=== PATIENT | female | born 1985 | race Caucasian/White ===

== ENCOUNTER 2018-01-18 12:11 | Emergency (ER) | payer MEDICAID, SELFPAY ==
--- NOTE | 2018-01-18 13:00 | RAD ---
TWO VIEWS CHEST: HISTORY: Cough for three weeks. COMPARISON: 06/27/2007 FINDINGS: Two views of the chest show normal sized cardiomediastinal silhouette. There is no evidence of consol idation, mass, or pleural effusion. The bones are unremarkable. IMPRESSION: No evidence of acute cardiopulmonary disease. POS: [facility]
== END 2018-01-18 12:50 | disposition home or self-care (01) ==
LOC: SCSER 12:11
DX: J06.9 Acute upper respiratory infection, unspecified (principal); F41.9 Anxiety disorder, unspecified; K21.9 Gastro-esophageal reflux disease without esophagitis; Z79.899 Other long term (current) drug therapy
CPT/HCPCS: 71046; 94640; J7620

== ENCOUNTER 2018-05-13 18:03 | Emergency (ER) | payer MEDICAID, SELFPAY ==
[2018-05-13 19:25] LABS: Bilirubin Negative (Negative); Blood, Urine Negative (Negative); Clarity CLEAR (Clear); Glucose, Urine (Dipstick) Negative (Negative); Leukocyte Negative (Negative); Nitrite Negative (Negative); Protein, Urine (Dipstick) Negative (Neg-Trace); Specific Gravity, Urine 1.027 (1.002-1.036); Urobilinogen 0.2 mg/dL (0.2-1.0)
[2018-05-13 19:28] LABS: Pregnancy Test - Urine (BHCG) Negative (Negative); Pregu Control Background? CLEAR/WHITE (CLR/WHITE); Pregu Control Bar Appear? YES (CONTROL BAR); Specific Gravity 1.027 (1.002-1.036)
[2018-05-13] MEDS ORDERED: Lidocaine 1% PF 5 ML VIAL ONE (19:31)
[2018-05-13 19:35] LABS: #Eosinphils 0.1 thou/uL (0.0-0.7); #Lymphocytes 2.3 thou/uL (1.20-3.40); #Monocytes 0.5 thou/uL (0.11-0.59); #Neutrophils 6.8 thou/uL (1.40-6.50); %Basophils 0.2 % (0.0-1.0); %Eosinophils 1.3 % (0.0-10.0); %Lymphocytes 23.4 % (21.0-51.0); %Monocytes 5.1 % (0.0-10.0); Hemoglobin 11.5 g/dL (12.0-16.0); Mean Corpuscular HGB CONC 34.4 g/dL (32.0-36.0); Mean Corpuscular Hemoglobin 29.2 pg (27.0-31.0); Mean Platelet Volume 6.9 fL (7.4-10.4); Platelet Count 250 thou/uL (130-400); RBC Distribution Width 12.7 % (11.5-14.5); Red Blood Cell (RBC) Count 3.92 mill/uL (4.20-5.40); White Blood Cell (WBC) Count 9.7 thou/uL (4.8-10.8)
[2018-05-13] MEDS ORDERED: Metoclopramide HCl 10 MG/2 ML VIAL ONE (19:35)
[2018-05-13] MEDS ORDERED: diphenhydrAMINE 50 MG/ML VIAL ONE (19:35)
[2018-05-13] MEDS ORDERED: Ketorolac Tromethamine 30 MG/ML VIAL ONE (19:35)
[2018-05-13 19:39] LABS: Prothrombin Time 12.9 SEC (12.0-14.7)
[2018-05-13 19:40] LABS: PTT 30.3 SEC (22.9-36.1)
[2018-05-13 19:45] LABS: Amphetamine Not Detected (NotDetected); Barbiturates Screen Not Detected (NotDetected); Benzodiazepine Screen Not Detected (NotDetected); Cocaine Metabolite Screen Not Detected (NotDetected); Medtox Control Line Valid? VALID (VALID); Medtox Reader # READER 1; Methadone Not Detected (NotDetected); Methamphetamine Not Detected (NotDetected); Opiate Screen Not Detected (NotDetected); Oxycodone Screen Not Detected (NotDetected); Phencyclidine (PCP) Not Detected (NotDetected); THC/Cannabinoid Screen Not Detected (NotDetected); Tricyclic Screen Not Detected (NotDetected)
--- NOTE | 2018-05-13 19:45 | RAD ---
PORTABLE CHEST: 05/13/18 HISTORY: Chest pain, tachycardia. COMPARISON: 12/18/16 study. The heart size and mediastinum are within normal limits. The lungs are clear of infiltrates. No signi ficant bony findings. IMPRESSION: No active intrathoracic disease. POS: [facility]
[2018-05-13 19:57] LABS: ALT (SGPT) 11 U/L (8-55); AST (SGOT) 9 U/L (5-34); Albumin 3.8 g/dL (3.5-5.0); Alkaline Phosphatase 82 U/L (40-150); Anion Gap 12 mmol/L (10-20); BUN (Urea Nitrogen) 14 mg/dL (7.0-18.7); Bilirubin, Total 0.6 mg/dL (0.2-1.2); CK (CPK) 52 U/L (29-168); Calc. Creatinine Clearance 0 mL/min (70-130); Carbon Dioxide 19 mmol/L (22-29); Chloride 109 mmol/L (98-107); Estimated GFR-MDRD Greater than 90; Globulin 2.7 g/dL (2.4-3.5); Glucose 128 mg/dL (70-105); Lipase 48 U/L (8-78); Magnesium 1.8 mg/dL (1.6-2.6); Potassium 3.9 mmol/L (3.5-5.1); Protein, Total 6.5 g/dL (6.0-8.3); Sodium 136 mmol/L (136-145)
[2018-05-13 20:00] LABS: CKMB 0.6 ng/mL (0-6.6); Troponin I Less than 0.010 ng/mL (< 0.028)
--- NOTE | 2018-05-13 20:53 | CT ---
CT OF BRAIN PERFORMED WITHOUT CONTRAST ENHANCEMENT: 05/13/18 HISTORY: Tachycardia and headache. Ventricular and cisternal system is within normal limits. There is no signs of intracerebral hemorrh age or extra-axial fluid collections. Mastoid air cells and visualized sinuses are clear. IMPRESSION: No acute intracranial abnormalities. POS: [facility]
--- NOTE | 2018-05-13 21:27 | CT ---
CT ANGIO OF CHEST AND ABDOMEN PERFORMED WITH INTRAVENOUS CONTRAST ENHANCEMENT WITH 3D RECONSTRUCTIONS : 05/13/18 HISTORY: Tachycardia. Chest pain. This was done per the aortic dissection protocol. The lungs are clear of any infiltrative process. No pulmonary nodules or pleural effusions. No signif icant mediastinal or hilar adenopathy. The thoracic aorta is normal in caliber. No signs of dissection. CT ANGIO OF ABDOMEN: The liver, spleen, pancreas and gallbladder regions are unremarkable on this angiographic phase exam. Right and left adrenal glands and right and left kidneys are normal in appearance. There is no signif icant periaortic or mesenteric adenopathy. Abdominal aorta is normal in caliber. There is no signs for dissection. IMPRESSION: No evidence of aortic aneurysm or dissection. POS: [facility]
== END 2018-05-13 22:23 | disposition home or self-care (01) ==
LOC: ERS 18:03
DX: R51 Headache (principal); R55 Syncope and collapse; F41.9 Anxiety disorder, unspecified; Z79.899 Other long term (current) drug therapy
CPT/HCPCS: 36415; 70450; 71045; 71275; 80053; 80306; 81003; 81025; 82550; 82553; 83690; 83735; 84484; 85025; 85610; 85730; 93005; 96361; 96374; 96375; J1200; J1885; J2001; J2765

== ENCOUNTER 2018-07-04 14:03 | Emergency (ER) | payer SELFPAY | END 2018-07-04 15:46 | disposition home or self-care (01) | LOC: SCSER 14:03 | DX: J02.9 Acute pharyngitis, unspecified (principal); J06.9 Acute upper respiratory infection, unspecified; K21.9 Gastro-esophageal reflux disease without esophagitis; F41.9 Anxiety disorder, unspecified | CPT/HCPCS: 87081; 87430; 99283 ==

== ENCOUNTER 2018-10-13 09:32 | Emergency (ER) | payer SELFPAY ==
[2018-10-13 10:17] LABS: Bilirubin Negative (Negative); Blood, Urine Large (Negative); Clarity TURBID (Clear); Glucose, Urine (Dipstick) Negative (Negative); Leukocyte Large (Negative); Nitrite Positive (Negative); Protein, Urine (Dipstick) 100 mg/dL (Neg-Trace); Specific Gravity, Urine 1.017 (1.002-1.036); Urobilinogen 0.2 mg/dL (0.2-1.0); pH, Urine 6.5 (5.0-9.0)
[2018-10-13 10:19] LABS: Bacteria/HPF 4+ HPF (None Seen); Hyaline Casts/LPF 0-3 HYALINE CAST LPF (0-3 Hyaline); Pathc Cast-AUWi Flag 0.31 (0-2.49); Squamous Epithelial 0-3 HPF (0-3)
[2018-10-13 10:21] LABS: Yeast-AUWi Flag 117.6 (0-25.0)
[2018-10-13 10:22] LABS: Pregnancy Test - Urine (BHCG) Negative (Negative); Pregu Control Background? CLEAR/WHITE (CLR/WHITE); Pregu Control Bar Appear? YES (CONTROL BAR); Specific Gravity 1.017 (1.002-1.036)
[2018-10-13 10:32] LABS: Yeast-All Forms None Seen HPF (None Seen)
== END 2018-10-13 10:39 | disposition home or self-care (01) ==
LOC: ERS 09:32
DX: R30.0 Dysuria (principal); K21.9 Gastro-esophageal reflux disease without esophagitis; F41.9 Anxiety disorder, unspecified; Z79.899 Other long term (current) drug therapy
CPT/HCPCS: 81003; 81015; 81025; 99281

== ENCOUNTER 2022-08-01 16:47 | Emergency (ER) | payer OTHER, SELFPAY ==
[~2022-08-01 16:47] MED LIST: Iopamidol-370 76% 500 ML 1 ML ONE
[2022-08-01 17:11] LABS: #Basophils 0.1 thou/uL (0.0-0.2); #Eosinphils 0.1 thou/uL (0.0-0.7); #Lymphocytes 2.2 thou/uL (1.20-3.40); #Monocytes 0.4 thou/uL (0.11-0.59); #Neutrophils 5.3 thou/uL (1.40-6.50); %Basophils 1.3 % (0.0-1.0); %Eosinophils 1.2 % (0.0-10.0); %Lymphocytes 27.3 % (21.0-51.0); %Neutrophils 65.2 % (42.0-75.0); Hemoglobin 12.3 g/dL (12.0-16.0); Mean Corpuscular HGB CONC 34.3 g/dL (32.0-36.0); Mean Corpuscular Hemoglobin 29.7 pg (27.0-31.0); Mean Corpuscular Volume 86.5 fL (78.0-98.0); Mean Platelet Volume 7.5 fL (7.4-10.4); Platelet Count 260 thou/uL (130-400); RBC Distribution Width 12.6 % (11.5-14.5); Red Blood Cell (RBC) Count 4.13 mill/uL (4.20-5.40); White Blood Cell (WBC) Count 8.1 thou/uL (4.8-10.8)
[2022-08-01 17:28] LABS: ALT (SGPT) 25 U/L (8-55); AST (SGOT) 17 U/L (5-34); Albumin 4.2 g/dL (3.5-5.0); Alkaline Phosphatase 91 U/L (40-110); Anion Gap 14 mmol/L (10-20); BUN (Urea Nitrogen) 11 mg/dL (7.0-18.7); Bilirubin, Total 1.1 mg/dL (0.2-1.2); Calc. Creatinine Clearance 0 mL/min (70-130); Calcium 9.6 mg/dL (7.8-10.44); Carbon Dioxide 21 mmol/L (22-29); Chloride 104 mmol/L (98-107); Estimated GFR 84; Globulin 3.1 g/dL (2.4-3.5); Glucose 323 mg/dL (70-105); Potassium 3.8 mmol/L (3.5-5.1); Protein, Total 7.3 g/dL (6.0-8.3); Sodium 135 mmol/L (136-145)
[2022-08-01] MEDS ORDERED: Ketorolac Tromethamine 30 MG/ML VIAL ONE (18:10)
[2022-08-01] MEDS ORDERED: Ondansetron PF 4 MG/2 ML Vial ONE (18:41)
== END 2022-08-01 19:37 | disposition home or self-care (01) ==
LOC: ERS 16:47
DX: R07.89 Other chest pain (principal); E11.9 Type 2 diabetes mellitus without complications
CPT/HCPCS: 36415; 71045; 71275; 80053; 82550; 84443; 84484; 85025; 93005; 96374; 96375; J1885; J2405; Q9967

== ENCOUNTER 2023-01-21 12:05 | Inpatient (IN) | payer BC ==
[2023-01-21] MEDS ORDERED: Ketorolac Tromethamine 30 MG/ML VIAL ONE (13:15)
[2023-01-21] MEDS ORDERED: Calcium Carbonate 500 MG ChewTAB PO PRN (14:34)
[2023-01-21] MEDS ORDERED: Ondansetron PF 4 MG/2 ML Vial IVP PRN (14:34)
[2023-01-21] MEDS ORDERED: Senokot S 8.6-50 MG TAB PO PRN (14:34)
[2023-01-21] MEDS ORDERED: HumaLOG 300 UNITS/3 ML VIAL SC PRN ×2 (14:36)
[2023-01-21] MEDS ORDERED: Dextrose 50% Abboject 50 ML SYRINGE SLOW IVP PRN (14:36)
[2023-01-21] MEDS ORDERED: Dextrose 5% in Water 1,000 ML IV PRN (14:36)
[2023-01-21] MEDS ORDERED: Morphine 2 MG/ML VIAL SLOW IVP PRN (15:00)
[2023-01-21] MEDS ORDERED: Piperacillin/Tazobactam 3.375 GM in Sodium Chloride 0.9% 100 ML IVPB SCH ×2 (16:45→18:00)
[2023-01-21] MEDS: Sodium Chloride 0.9% 1,000 ML IV SCH (18:16)
[2023-01-21 18:19] VITALS: BMI 36.3
[2023-01-21] MEDS: Acetaminophen 325 MG TAB PO PRN (19:56)
[2023-01-21] MEDS: Famotidine/PF 20 mg/2ml Vial SLOW IVP SCH (20:05)
[2023-01-21] MEDS: metroNIDAZOLE 500 MG in Premix Bag 1 BAG IVPB SCH (20:12)
[2023-01-21] MEDS: hydrOXYzine 10 MG TAB PO PRN (20:49)
[2023-01-22] MEDS: metroNIDAZOLE 500 MG in Premix Bag 1 BAG IVPB SCH ×4 (04:26→21:06)
[2023-01-22] MEDS: Sodium Chloride 0.9% 1,000 ML IV SCH (05:55)
[2023-01-22 06:53] LABS: #Eosinphils 0.7 thou/uL (0.0-0.7); #Lymphocytes 1.9 thou/uL (1.20-3.40); #Monocytes 0.4 thou/uL (0.11-0.59); #Neutrophils 2.9 thou/uL (1.40-6.50); %Basophils 0.2 % (0.0-1.0); %Lymphocytes 31.8 % (21.0-51.0); %Monocytes 6.8 % (0.0-10.0); %Neutrophils 49.2 % (42.0-75.0); Hemoglobin 10.9 g/dL (12.0-16.0); Mean Corpuscular HGB CONC 35.9 g/dL (32.0-36.0); Mean Corpuscular Hemoglobin 31.7 pg (27.0-31.0); Mean Corpuscular Volume 88.2 fl (78.0-98.0); Mean Platelet Volume 7.1 fL (7.4-10.4); Platelet Count 191 10x3/uL (130-400); RBC Distribution Width 12.6 % (11.5-14.5); Red Blood Cell (RBC) Count 3.43 mill/uL (4.20-5.40); White Blood Cell (WBC) Count 5.9 10x3/uL (4.8-10.8)
[2023-01-22 07:17] LABS: ALT (SGPT) 13 U/L (8-55); AST (SGOT) 10 U/L (5-34); Albumin 3.4 g/dL (3.5-5.0); Alkaline Phosphatase 62 U/L (40-110); Anion Gap 9 mmol/L (10-20); BUN (Urea Nitrogen) 7 mg/dL (7.0-18.7); Bilirubin, Total 1.4 mg/dL (0.2-1.2); Calc. Creatinine Clearance 165 mL/min (70-130); Carbon Dioxide 22 mmol/L (22-29); Cardiac Risk 6.5 (Less than 4.5); Chloride 109 mmol/L (98-107); Cholesterol 176 mg/dl (< 200 Desired); Estimated GFR 115; Globulin 2.3 g/dL (2.4-3.5); Glucose 102 mg/dL (70-105); HDL Cholesterol 27 mg/dL (>60 Neg Risk); LDL Cholesterol, Calculated 118 mg/dL; Lipase 25 U/L (8-78); Potassium 3.9 mmol/L (3.5-5.1); Protein, Total 5.7 g/dL (6.0-8.3); Sodium 136 mmol/L (136-145); Triglycerides 154 mg/dL (Less than 150)
[2023-01-22] MEDS: Famotidine/PF 20 mg/2ml Vial SLOW IVP SCH ×2 (08:32→21:06)
[2023-01-22 10:58] LABS: Pregnancy Test - Urine (BHCG) Negative (Negative); Pregu Control Background? CLEAR/WHITE (CLR/WHITE); Pregu Control Bar Appear? YES (CONTROL BAR); Specific Gravity 1.008 (1.002-1.036)
[2023-01-22] MEDS ORDERED: Bupivacaine/Epinephrine 0.25% 30 ML VIAL ONE (11:50)
[2023-01-22] MEDS ORDERED: Famotidine/PF 20 mg/2ml Vial ONE (12:11)
[2023-01-22] MEDS ORDERED: SUGAMMADEX SODIUM 200 MG/2 ML VIAL ONE (12:11)
[2023-01-22] MEDS ORDERED: fentaNYL 50 mcg/mL 1 mL Vial ONE ×5 (12:11→14:08)
[2023-01-22] MEDS ORDERED: Ketorolac Tromethamine 30 MG/ML VIAL ONE (12:23)
[2023-01-22] MEDS ORDERED: Phenylephrine 10 MG/ML VIAL ONE (12:23)
[2023-01-22] MEDS ORDERED: PROPOFOL 200 MG/20 ML VIAL ONE (12:23)
[2023-01-22] MEDS ORDERED: Metoclopramide HCl 10 MG/2 ML VIAL ONE (12:23)
[2023-01-22] MEDS ORDERED: ePHEDrine Sulfate 50 MG/10 ML VIAL ONE (12:23)
[2023-01-22] MEDS ORDERED: Dexamethasone 20 MG/5 ML VIAL ONE (12:23)
[2023-01-22] MEDS ORDERED: Lidocaine 1% PF 5 ML VIAL ONE (12:23)
[2023-01-22] MEDS ORDERED: Rocuronium Bromide 10 MG/ML (10ML VIAL) ONE (12:23)
[2023-01-22] MEDS ORDERED: Meperidine HCl/PF 25 MG/ML VIAL SLOW IVP PRN (13:44)
[2023-01-22] MEDS ORDERED: Promethazine HCl 25 MG/ML VIAL IM PRN ×2 (13:44→13:47)
[2023-01-22] MEDS ORDERED: Ondansetron HCl/PF 4 MG/2 ML Vial IVP PRN (13:44)
[2023-01-22] MEDS ORDERED: Dextrose 5% in Water 1,000 ML IV PRN (13:47)
[2023-01-22] MEDS ORDERED: hydrALAZINE 20 MG/ML VIAL SLOW IVP PRN (13:47)
[2023-01-22] MEDS ORDERED: Calcium Carbonate 500 MG ChewTAB PO PRN (13:47)
[2023-01-22] MEDS ORDERED: Ondansetron PF 4 MG/2 ML Vial IVP PRN (13:47)
[2023-01-22] MEDS ORDERED: Ipratropium/Albuterol 3 ML NEB NEB PRN (13:47)
[2023-01-22] MEDS ORDERED: Dextrose 50% Abboject 50 ML SYRINGE SLOW IVP PRN (13:47)
[2023-01-22] MEDS ORDERED: Mag-Al 1200 mg/1200 mg/30 ML UDCUP PO PRN (13:47)
[2023-01-22] MEDS: HYDROcodone/Acetaminophen 10/325 mg Tablet PO PRN ×2 (15:41→20:41)
[2023-01-22] MEDS ORDERED: Sertraline 100 MG TAB PO SCH (16:00)
[2023-01-22 18:29] LABS: Anion Gap 11 mmol/L (10-20); BUN (Urea Nitrogen) 7 mg/dL (7.0-18.7); Calc. Creatinine Clearance 147 mL/min (70-130); Calcium 9.4 mg/dL (7.8-10.44); Carbon Dioxide 20 mmol/L (22-29); Chloride 108 mmol/L (98-107); Estimated GFR 106; Glucose 194 mg/dL (70-105); Potassium 3.8 mmol/L (3.5-5.1); Sodium 135 mmol/L (136-145)
[2023-01-22] MEDS: Famotidine 20 MG TAB PO SCH (20:46)
[2023-01-22] MEDS ORDERED: Ibuprofen 600 MG TAB PO SCH (22:30)
[2023-01-23] MEDS: metroNIDAZOLE 500 MG in Premix Bag 1 BAG IVPB SCH (04:15)
[2023-01-23] MEDS: HYDROcodone/Acetaminophen 10/325 mg Tablet PO PRN ×3 (04:51→18:28)
[2023-01-23 07:06] LABS: #Eosinphils 0.1 thou/uL (0.0-0.7); #Lymphocytes 1.6 thou/uL (1.20-3.40); #Monocytes 0.7 thou/uL (0.11-0.59); #Neutrophils 8.1 thou/uL (1.40-6.50); %Basophils 0.1 % (0.0-1.0); %Eosinophils 1.2 % (0.0-10.0); %Monocytes 6.5 % (0.0-10.0); %Neutrophils 77.3 % (42.0-75.0); Hemoglobin 11.1 g/dL (12.0-16.0); Mean Corpuscular HGB CONC 34.7 g/dL (32.0-36.0); Mean Corpuscular Hemoglobin 30.8 pg (27.0-31.0); Mean Corpuscular Volume 88.7 fl (78.0-98.0); Mean Platelet Volume 7.1 fL (7.4-10.4); Platelet Count 219 10x3/uL (130-400); RBC Distribution Width 12.7 % (11.5-14.5); Red Blood Cell (RBC) Count 3.59 mill/uL (4.20-5.40); White Blood Cell (WBC) Count 10.5 10x3/uL (4.8-10.8)
[2023-01-23] MEDS ORDERED: Famotidine 20 MG TAB PO SCH ×2 (09:00→21:00)
[2023-01-23] MEDS: Famotidine 20 MG TAB PO SCH (09:07)
[2023-01-23] MEDS: Sertraline 100 MG TAB PO SCH (09:07)
[2023-01-23] MEDS: Famotidine/PF 20 mg/2ml Vial SLOW IVP SCH (09:07)
[2023-01-23] MEDS ORDERED: Lidocaine 2% Viscous Solution 10 ML, Aluminum & Magnesium Hydroxide 30 ML SSW SCH (09:30)
[2023-01-23 09:45] LABS: Anion Gap 13 mmol/L (10-20); BUN (Urea Nitrogen) 7 mg/dL (7.0-18.7); Calc. Creatinine Clearance 145 mL/min (70-130); Calcium 9.8 mg/dL (7.8-10.44); Carbon Dioxide 21 mmol/L (22-29); Chloride 105 mmol/L (98-107); Estimated GFR 104; Glucose 147 mg/dL (70-105); Potassium 3.6 mmol/L (3.5-5.1); Sodium 135 mmol/L (136-145)
[2023-01-23 09:50] LABS: Troponin I Less than 0.010 ng/mL (< 0.028)
[2023-01-23] MEDS: hydrOXYzine 10 MG TAB PO PRN (22:14)
[2023-01-24 04:12] VITALS: TEMP 97.9
[2023-01-24] MEDS: HYDROcodone/Acetaminophen 10/325 mg Tablet PO PRN ×2 (04:38→12:22)
[2023-01-24 08:17] VITALS: BP 123/82
[2023-01-24] MEDS: Sertraline 100 MG TAB PO SCH (08:18)
[2023-01-24] MEDS: Acetaminophen 325 MG TAB PO PRN (08:53)
[2023-01-24] MEDS ORDERED: Cyclobenzaprine 10 MG TAB PO SCH (09:15)
[2023-01-24] MEDS ORDERED: Ibuprofen 200 MG TAB PO SCH (14:00)
[2023-01-24] MEDS ORDERED: Ibuprofen 600 MG TAB PO SCH (14:00)
== END 2023-01-24 15:30 | disposition home or self-care (01) | DRG 419 ==
LOC: ERS 12:05 → SUATTDRO 12:05 → OBSVTOIN 16:37 → T4-B 16:37
PROVIDERS: ADMIT Internal Medicine; ATTEND Internal Medicine
PROC: 0FT44ZZ Resection of Gallbladder, Percutaneous Endoscopic Approach (ICD-10-PCS; principal; 2023-01-22)
DX: K81.2 Acute cholecystitis with chronic cholecystitis (principal); F41.9 Anxiety disorder, unspecified; E66.9 Obesity, unspecified; E11.9 Type 2 diabetes mellitus without complications; Z68.36 Body mass index [BMI] 36.0-36.9, adult; Z88.0 Allergy status to penicillin; Z79.899 Other long term (current) drug therapy
CPT/HCPCS: 36415; 36416; 78227; 80048; 80053; 80061; 81025; 83690; 84484; 85025; 88304; 93005; 93010; 96361; 96374; A9537; C1889; J1100; J1650; J1815; J1885; J1956; J2370; J2405; J2704; J2765; J3010; J7050; S0028

== ENCOUNTER 2023-01-27 14:55 | Inpatient (IN) | payer BC ==
[2023-01-27 15:37] VITALS: BMI 33.6
[2023-01-27] MEDS ORDERED: Dextrose 50% Abboject 50 ML SYRINGE SLOW IVP PRN (17:41)
[2023-01-27] MEDS ORDERED: Dextrose 5% in Water 1,000 ML IV PRN (17:41)
[2023-01-27] MEDS ORDERED: Acetaminophen 650 MG Suppository PR PRN (17:44)
[2023-01-27] MEDS ORDERED: HumaLOG 300 UNITS/3 ML VIAL SC PRN (17:44)
[2023-01-27] MEDS ORDERED: Cyclobenzaprine 10 MG TAB PO PRN (17:46)
[2023-01-27] MEDS: HYDROcodone/Acetaminophen 5/325 mg Tablet PO PRN (20:54)
[2023-01-27] MEDS: Pantoprazole 40 MG VIAL IVP SCH (20:55)
[2023-01-27] MEDS ORDERED: hydrOXYzine 25 MG TAB PO SCH (22:15)
[2023-01-28 07:12] LABS: #Eosinphils 1.2 thou/uL (0.0-0.7); #Lymphocytes 1.9 thou/uL (1.20-3.40); #Monocytes 0.4 thou/uL (0.11-0.59); #Neutrophils 6.1 thou/uL (1.40-6.50); %Basophils 0.2 % (0.0-1.0); %Eosinophils 12.9 % (0.0-10.0); %Lymphocytes 19.2 % (21.0-51.0); %Monocytes 4.5 % (0.0-10.0); %Neutrophils 63.2 % (42.0-75.0); Hemoglobin 12.1 g/dL (12.0-16.0); Mean Corpuscular HGB CONC 33.5 g/dL (32.0-36.0); Mean Corpuscular Hemoglobin 29.9 pg (27.0-31.0); Mean Corpuscular Volume 89.3 fl (78.0-98.0); Platelet Count 275 10x3/uL (130-400); RBC Distribution Width 12.3 % (11.5-14.5); Red Blood Cell (RBC) Count 4.03 mill/uL (4.20-5.40); White Blood Cell (WBC) Count 9.6 10x3/uL (4.8-10.8)
[2023-01-28 07:35] LABS: ALT (SGPT) 71 U/L (8-55); AST (SGOT) 13 U/L (5-34); Albumin 3.8 g/dL (3.5-5.0); Alkaline Phosphatase 160 U/L (40-110); Anion Gap 11 mmol/L (10-20); BUN (Urea Nitrogen) 8 mg/dL (7.0-18.7); Bilirubin, Total 1.2 mg/dL (0.2-1.2); Calc. Creatinine Clearance 133 mL/min (70-130); Calcium 9.5 mg/dL (7.8-10.44); Carbon Dioxide 22 mmol/L (22-29); Chloride 105 mmol/L (98-107); Estimated GFR 100; Globulin 2.8 g/dL (2.4-3.5); Glucose 151 mg/dL (70-105); Potassium 3.9 mmol/L (3.5-5.1); Protein, Total 6.6 g/dL (6.0-8.3); Sodium 134 mmol/L (136-145)
[2023-01-28] MEDS: Pantoprazole 40 MG VIAL IVP SCH ×2 (08:35→21:48)
[2023-01-28] MEDS: Sertraline 100 MG TAB PO SCH (08:35)
[2023-01-28] MEDS: HYDROcodone/Acetaminophen 5/325 mg Tablet PO PRN ×2 (08:37→21:49)
[2023-01-28] MEDS ORDERED: Morphine 4 MG/ML VIAL ONE (16:22)
[2023-01-28] MEDS ORDERED: fentaNYL PF 100 MCG/2 ML SYRINGE ONE (16:23)
[2023-01-28] MEDS ORDERED: SUGAMMADEX SODIUM 200 MG/2 ML VIAL ONE (16:23)
[2023-01-28] MEDS ORDERED: Indomethacin 50 MG SUPP ONE (16:28)
[2023-01-28] MEDS ORDERED: HYDROmorphone 0.5 MG/0.5 ML SYRINGE ONE (16:38)
[2023-01-28] MEDS ORDERED: PROPOFOL 200 MG/20 ML VIAL ONE (17:37)
[2023-01-28] MEDS ORDERED: Succinylcholine Chloride 100 MG/5 ML SYRINGE FS ONE (17:37)
[2023-01-28] MEDS ORDERED: Rocuronium Bromide 10 MG/ML (10ML VIAL) ONE (17:37)
[2023-01-28] MEDS ORDERED: Dexamethasone 20 MG/5 ML VIAL ONE (17:37)
[2023-01-28] MEDS ORDERED: Lidocaine 1% PF 5 ML VIAL ONE (17:37)
[2023-01-28] MEDS ORDERED: Iopamidol 15 ML ONE (17:58)
[2023-01-28] MEDS ORDERED: Levofloxacin 500 mg/D5W 100 ml Premix Bag ONE (17:58)
[2023-01-28] MEDS ORDERED: Ondansetron HCl/PF 4 MG/2 ML Vial IVP PRN (19:28)
[2023-01-28] MEDS ORDERED: HYDROmorphone 2 MG/ML VIAL SLOW IVP PRN (19:28)
[2023-01-28] MEDS ORDERED: Promethazine HCl 25 MG/ML VIAL IM PRN (19:28)
[2023-01-28] MEDS ORDERED: fentaNYL 50 mcg/mL 1 mL Vial ONE ×2 (19:34→19:47)
[2023-01-28] MEDS ORDERED: Ondansetron PF 4 MG/2 ML Vial ONE (19:34)
[2023-01-28] MEDS: Ondansetron PF 4 MG/2 ML Vial IVP PRN (21:53)
[2023-01-29] MEDS: HYDROcodone/Acetaminophen 5/325 mg Tablet PO PRN (03:06)
[2023-01-29] MEDS: Ondansetron PF 4 MG/2 ML Vial IVP PRN ×3 (03:35→23:03)
[2023-01-29] MEDS ORDERED: Morphine 2 MG/ML VIAL SLOW IVP SCH ×2 (04:00→05:45)
[2023-01-29] MEDS ORDERED: Sodium Chloride 0.9% 1,000 ML IV SCH (05:45)
[2023-01-29 06:26] LABS: #Eosinphils 0.1 thou/uL (0.0-0.7); #Lymphocytes 1.2 thou/uL (1.20-3.40); #Monocytes 0.6 thou/uL (0.11-0.59); #Neutrophils 11.5 thou/uL (1.40-6.50); %Eosinophils 0.7 % (0.0-10.0); %Lymphocytes 9.1 % (21.0-51.0); %Monocytes 4.2 % (0.0-10.0); Hemoglobin 12.3 g/dL (12.0-16.0); Mean Corpuscular HGB CONC 34.6 g/dL (32.0-36.0); Mean Corpuscular Hemoglobin 30.2 pg (27.0-31.0); Mean Corpuscular Volume 87.3 fl (78.0-98.0); Mean Platelet Volume 7.6 fL (7.4-10.4); Platelet Count 273 10x3/uL (130-400); RBC Distribution Width 12.2 % (11.5-14.5); Red Blood Cell (RBC) Count 4.07 mill/uL (4.20-5.40); White Blood Cell (WBC) Count 13.3 10x3/uL (4.8-10.8)
[2023-01-29] MEDS ORDERED: fentaNYL 50 mcg/mL 1 mL Vial SLOW IVP SCH (06:30)
[2023-01-29 06:47] LABS: Anion Gap 16 mmol/L (10-20); BUN (Urea Nitrogen) 9 mg/dL (7.0-18.7); Calc. Creatinine Clearance 142 mL/min (70-130); Calcium 9.7 mg/dL (7.8-10.44); Carbon Dioxide 19 mmol/L (22-29); Chloride 103 mmol/L (98-107); Estimated GFR 108; Glucose 187 mg/dL (70-105); Potassium 3.7 mmol/L (3.5-5.1); Sodium 134 mmol/L (136-145)
[2023-01-29 06:49] LABS: ALT (SGPT) 210 U/L (8-55); AST (SGOT) 126 U/L (5-34); Alkaline Phosphatase 240 U/L (40-110); Bilirubin, Direct 0.5 mg/dL (0.1-0.3); Bilirubin, Total 1.4 mg/dL (0.2-1.2); Protein, Total 6.9 g/dL (6.0-8.3)
[2023-01-29] MEDS: Sodium Chloride 0.9% 1,000 ML IV SCH ×2 (08:09→12:53)
[2023-01-29] MEDS ORDERED: Metoclopramide HCl 10 MG/2 ML VIAL IVP PRN (08:14)
[2023-01-29] MEDS ORDERED: Promethazine HCl 12.5 MG in Sodium Chloride 0.9% 50 ML IVPB SCH ×2 (08:30→18:15)
[2023-01-29] MEDS: Sertraline 100 MG TAB PO SCH (08:50)
[2023-01-29] MEDS: Pantoprazole 40 MG VIAL IVP SCH ×2 (09:29→22:01)
[2023-01-29] MEDS: Morphine 4 MG/ML VIAL SLOW IVP PRN ×3 (09:30→23:04)
[2023-01-29] MEDS: Ketorolac Tromethamine 30 MG/ML VIAL IVP PRN ×2 (12:53→19:26)
[2023-01-30] MEDS: Sodium Chloride 0.9% 1,000 ML IV SCH ×5 (00:05→20:54)
[2023-01-30] MEDS: Morphine 4 MG/ML VIAL SLOW IVP PRN ×3 (06:12→18:39)
[2023-01-30] MEDS: Ondansetron PF 4 MG/2 ML Vial IVP PRN ×2 (06:13→18:39)
[2023-01-30 08:19] LABS: #Eosinphils 0.1 thou/uL (0.0-0.7); #Lymphocytes 1.1 thou/uL (1.20-3.40); #Monocytes 0.8 thou/uL (0.11-0.59); #Neutrophils 11.4 thou/uL (1.40-6.50); %Basophils 0.1 % (0.0-1.0); %Eosinophils 0.5 % (0.0-10.0); %Monocytes 5.9 % (0.0-10.0); %Neutrophils 85.6 % (42.0-75.0); Hemoglobin 11.7 g/dL (12.0-16.0); Mean Corpuscular HGB CONC 35.2 g/dL (32.0-36.0); Mean Platelet Volume 7.3 fL (7.4-10.4); Platelet Count 237 10x3/uL (130-400); RBC Distribution Width 12.4 % (11.5-14.5); Red Blood Cell (RBC) Count 3.76 mill/uL (4.20-5.40); White Blood Cell (WBC) Count 13.3 10x3/uL (4.8-10.8)
[2023-01-30 08:37] LABS: ALT (SGPT) 110 U/L (8-55); AST (SGOT) 24 U/L (5-34); Albumin 3.6 g/dL (3.5-5.0); Alkaline Phosphatase 165 U/L (40-110); Anion Gap 10 mmol/L (10-20); BUN (Urea Nitrogen) 5 mg/dL (7.0-18.7); Bilirubin, Total 1.2 mg/dL (0.2-1.2); CRP (Inflammatory) 2.93 mg/dL (= or < 0.5); Calc. Creatinine Clearance 162 mL/min (70-130); Calcium 9.2 mg/dL (7.8-10.44); Carbon Dioxide 19 mmol/L (22-29); Chloride 109 mmol/L (98-107); Estimated GFR 116; Globulin 2.8 g/dL (2.4-3.5); Glucose 150 mg/dL (70-105); Potassium 3.3 mmol/L (3.5-5.1); Protein, Total 6.4 g/dL (6.0-8.3); Sodium 135 mmol/L (136-145)
[2023-01-30] MEDS: Pantoprazole 40 MG VIAL IVP SCH ×2 (09:44→20:55)
[2023-01-30] MEDS: Sertraline 100 MG TAB PO SCH (09:44)
[2023-01-30] MEDS: HYDROcodone/Acetaminophen 5/325 mg Tablet PO PRN (15:55)
[2023-01-30] MEDS: Acetaminophen 325 MG TAB PO PRN (22:45)
[2023-01-31] MEDS: Morphine 4 MG/ML VIAL SLOW IVP PRN (00:05)
[2023-01-31] MEDS: Ondansetron PF 4 MG/2 ML Vial IVP PRN ×3 (00:05→11:52)
[2023-01-31] MEDS: Sodium Chloride 0.9% 1,000 ML IV SCH ×4 (03:37→18:25)
[2023-01-31 07:01] LABS: #Eosinphils 0.1 thou/uL (0.0-0.7); #Monocytes 0.7 thou/uL (0.11-0.59); #Neutrophils 8.1 thou/uL (1.40-6.50); %Basophils 0.1 % (0.0-1.0); %Eosinophils 0.7 % (0.0-10.0); %Lymphocytes 10.2 % (21.0-51.0); %Monocytes 7.2 % (0.0-10.0); %Neutrophils 81.7 % (42.0-75.0); Hemoglobin 10.1 g/dL (12.0-16.0); Mean Corpuscular HGB CONC 35.2 g/dL (32.0-36.0); Mean Corpuscular Hemoglobin 31.4 pg (27.0-31.0); Mean Corpuscular Volume 89.4 fl (78.0-98.0); Mean Platelet Volume 7.3 fL (7.4-10.4); Platelet Count 207 10x3/uL (130-400); RBC Distribution Width 12.2 % (11.5-14.5); White Blood Cell (WBC) Count 9.9 10x3/uL (4.8-10.8)
[2023-01-31 07:23] LABS: Anion Gap 12 mmol/L (10-20); BUN (Urea Nitrogen) 4 mg/dL (7.0-18.7); CRP (Inflammatory) 14.08 mg/dL (= or < 0.5); Calc. Creatinine Clearance 176 mL/min (70-130); Carbon Dioxide 18 mmol/L (22-29); Chloride 109 mmol/L (98-107); Estimated GFR 118; Glucose 145 mg/dL (70-105); Potassium 3.4 mmol/L (3.5-5.1); Sodium 136 mmol/L (136-145)
[2023-01-31 08:17] LABS: ALT (SGPT) 65 U/L (8-55); AST (SGOT) 11 U/L (5-34); Albumin 3.2 g/dL (3.5-5.0); Alkaline Phosphatase 123 U/L (40-110); Bilirubin, Direct 0.5 mg/dL (0.1-0.3); Bilirubin, Total 1.4 mg/dL (0.2-1.2); Lipase 330 U/L (8-78); Protein, Total 5.8 g/dL (6.0-8.3)
[2023-01-31] MEDS: Sertraline 100 MG TAB PO SCH (09:09)
[2023-01-31] MEDS: Pantoprazole 40 MG VIAL IVP SCH ×2 (09:09→22:52)
[2023-01-31] MEDS ORDERED: traMADol HCl 50 MG TAB PO PRN (11:09)
[2023-01-31] MEDS: traMADol HCl 50 MG TAB PO SCH ×2 (11:22→19:38)
[2023-01-31] MEDS: Ketorolac Tromethamine 30 MG/ML VIAL IVP SCH ×2 (11:23→19:41)
[2023-01-31] MEDS ORDERED: Scopolamine 1.5 mg/72 hour Patch TD SCH (11:30)
[2023-01-31] MEDS: Simethicone Chewable 80 MG TAB PO PRN ×2 (14:59→22:50)
[2023-01-31] MEDS: Senokot S 8.6-50 MG TAB PO SCH (22:50)
[2023-02-01] MEDS: Sodium Chloride 0.9% 1,000 ML IV SCH ×5 (00:19→20:34)
[2023-02-01] MEDS: traMADol HCl 50 MG TAB PO SCH ×5 (00:22→23:41)
[2023-02-01] MEDS: Ketorolac Tromethamine 30 MG/ML VIAL IVP SCH ×5 (00:23→23:41)
[2023-02-01] MEDS: Pantoprazole 40 MG VIAL IVP SCH ×2 (09:07→20:34)
[2023-02-01] MEDS: Senokot S 8.6-50 MG TAB PO SCH ×2 (09:07→20:33)
[2023-02-01] MEDS: Sertraline 100 MG TAB PO SCH (09:07)
[2023-02-01] MEDS: Polyethylene Glycol 3350 17 GM Packet PO PRN (09:10)
[2023-02-01] MEDS ORDERED: Bisacodyl 10 MG SUPP PR PRN (12:14)
[2023-02-01 13:00] LABS: #Eosinphils 0.1 thou/uL (0.0-0.7); #Lymphocytes 1.2 thou/uL (1.20-3.40); #Monocytes 0.5 thou/uL (0.11-0.59); #Neutrophils 5.3 thou/uL (1.40-6.50); %Basophils 0.3 % (0.0-1.0); %Eosinophils 1.9 % (0.0-10.0); %Monocytes 6.6 % (0.0-10.0); %Neutrophils 74.2 % (42.0-75.0); Hemoglobin 9.4 g/dL (12.0-16.0); Mean Corpuscular HGB CONC 34.6 g/dL (32.0-36.0); Mean Corpuscular Volume 89.6 fl (78.0-98.0); Mean Platelet Volume 7.2 fL (7.4-10.4); Platelet Count 202 10x3/uL (130-400); RBC Distribution Width 12.1 % (11.5-14.5); Red Blood Cell (RBC) Count 3.03 mill/uL (4.20-5.40); White Blood Cell (WBC) Count 7.1 10x3/uL (4.8-10.8)
[2023-02-02] MEDS: Sodium Chloride 0.9% 1,000 ML IV SCH (02:09)
[2023-02-02] MEDS: Ketorolac Tromethamine 30 MG/ML VIAL IVP SCH ×3 (05:42→18:17)
[2023-02-02] MEDS: traMADol HCl 50 MG TAB PO SCH ×3 (05:42→18:17)
[2023-02-02] MEDS: Senokot S 8.6-50 MG TAB PO SCH ×2 (08:21→21:05)
[2023-02-02] MEDS: Sertraline 100 MG TAB PO SCH (08:21)
[2023-02-02] MEDS: Pantoprazole 40 MG VIAL IVP SCH (08:21)
[2023-02-02 11:52] LABS: ALT (SGPT) 51 U/L (8-55); AST (SGOT) 14 U/L (5-34); Albumin 3.3 g/dL (3.5-5.0); Alkaline Phosphatase 133 U/L (40-110); Anion Gap 11 mmol/L (10-20); BUN (Urea Nitrogen) 7 mg/dL (7.0-18.7); Bilirubin, Total 0.8 mg/dL (0.2-1.2); Calc. Creatinine Clearance 165 mL/min (70-130); Carbon Dioxide 21 mmol/L (22-29); Chloride 111 mmol/L (98-107); Estimated GFR 116; Globulin 2.7 g/dL (2.4-3.5); Glucose 156 mg/dL (70-105); Potassium 3.8 mmol/L (3.5-5.1); Sodium 139 mmol/L (136-145)
[2023-02-02] MEDS: Morphine 4 MG/ML VIAL SLOW IVP PRN (21:05)
[2023-02-02] MEDS ORDERED: Pantoprazole 40 MG VIAL IVP SCH (21:15)
[2023-02-02] MEDS ORDERED: Calcium Carbonate 500 MG ChewTAB PO SCH (21:15)
[2023-02-02 21:56] LABS: Anion Gap 14 mmol/L (10-20); BUN (Urea Nitrogen) 5 mg/dL (7.0-18.7); Calc. Creatinine Clearance 153 mL/min (70-130); Calcium 9.3 mg/dL (7.8-10.44); Carbon Dioxide 22 mmol/L (22-29); Chloride 109 mmol/L (98-107); Estimated GFR 114; Glucose 139 mg/dL (70-105); Potassium 3.7 mmol/L (3.5-5.1); Sodium 141 mmol/L (136-145)
[2023-02-02 21:59] LABS: Troponin I Less than 0.010 ng/mL (< 0.028)
[2023-02-03] MEDS: traMADol HCl 50 MG TAB PO SCH ×3 (00:33→06:37)
[2023-02-03] MEDS: Ketorolac Tromethamine 30 MG/ML VIAL IVP SCH ×4 (00:33→18:33)
[2023-02-03 06:28] LABS: #Eosinphils 0.4 thou/uL (0.0-0.7); #Lymphocytes 1.9 thou/uL (1.20-3.40); #Monocytes 0.3 thou/uL (0.11-0.59); %Basophils 0.1 % (0.0-1.0); %Eosinophils 7.1 % (0.0-10.0); %Lymphocytes 33.6 % (21.0-51.0); %Monocytes 5.1 % (0.0-10.0); %Neutrophils 54.1 % (42.0-75.0); Hemoglobin 9.1 g/dL (12.0-16.0); Mean Corpuscular HGB CONC 33.9 g/dL (32.0-36.0); Mean Corpuscular Hemoglobin 30.2 pg (27.0-31.0); Mean Corpuscular Volume 89.2 fl (78.0-98.0); Mean Platelet Volume 7.1 fL (7.4-10.4); Platelet Count 249 10x3/uL (130-400); RBC Distribution Width 11.9 % (11.5-14.5); White Blood Cell (WBC) Count 5.5 10x3/uL (4.8-10.8)
[2023-02-03 06:40] LABS: Anion Gap 11 mmol/L (10-20); BUN (Urea Nitrogen) 5 mg/dL (7.0-18.7); Calc. Creatinine Clearance 170 mL/min (70-130); Carbon Dioxide 23 mmol/L (22-29); Chloride 108 mmol/L (98-107); Estimated GFR 117; Glucose 118 mg/dL (70-105); Potassium 3.4 mmol/L (3.5-5.1); Sodium 139 mmol/L (136-145)
[2023-02-03 06:44] LABS: ALT (SGPT) 39 U/L (8-55); AST (SGOT) 14 U/L (5-34); Albumin 3.1 g/dL (3.5-5.0); Alkaline Phosphatase 121 U/L (40-110); Bilirubin, Direct 0.2 mg/dL (0.1-0.3); Bilirubin, Total 0.6 mg/dL (0.2-1.2); Protein, Total 5.6 g/dL (6.0-8.3)
[2023-02-03] MEDS ORDERED: Potassium Bicarbonate/Cit Ac 20 MEQ TAB PO SCH (08:00)
[2023-02-03] MEDS: Sertraline 100 MG TAB PO SCH (08:48)
[2023-02-03] MEDS: Senokot S 8.6-50 MG TAB PO SCH ×2 (08:48→21:15)
[2023-02-03] MEDS: Polyethylene Glycol 3350 17 GM Packet PO PRN (08:50)
[2023-02-03] MEDS: Acetaminophen 325 MG TAB PO PRN (09:14)
[2023-02-03] MEDS ORDERED: Acetaminophen 500 MG TAB PO PRN (09:34)
[2023-02-03] MEDS ORDERED: Bisacodyl 10 MG SUPP PR SCH (09:45)
[2023-02-03] MEDS ORDERED: Glycerin Adult Supp. (24 ct jar) PR SCH (11:30)
[2023-02-03] MEDS: Metoclopramide HCl 10 MG/2 ML VIAL IVP SCH ×2 (15:08→15:09)
[2023-02-03] MEDS: Polyethylene Glycol 3350 17 GM Packet PO SCH (21:18)
[2023-02-04] MEDS: Ketorolac Tromethamine 30 MG/ML VIAL IVP SCH ×3 (00:10→11:42)
[2023-02-04] MEDS: Metoclopramide HCl 10 MG/2 ML VIAL IVP SCH ×2 (05:27→11:42)
[2023-02-04 06:07] LABS: #Eosinphils 0.4 thou/uL (0.0-0.7); #Monocytes 0.5 thou/uL (0.11-0.59); %Basophils 0.3 % (0.0-1.0); %Neutrophils 57.7 % (42.0-75.0); Hemoglobin 11.3 g/dL (12.0-16.0); Mean Corpuscular HGB CONC 34.6 g/dL (32.0-36.0); Mean Corpuscular Hemoglobin 30.8 pg (27.0-31.0); Mean Corpuscular Volume 88.9 fl (78.0-98.0); Platelet Count 316 10x3/uL (130-400); RBC Distribution Width 11.8 % (11.5-14.5); Red Blood Cell (RBC) Count 3.68 mill/uL (4.20-5.40); White Blood Cell (WBC) Count 6.9 10x3/uL (4.8-10.8)
[2023-02-04] MEDS: Ondansetron PF 4 MG/2 ML Vial IVP PRN (06:11)
[2023-02-04] MEDS: Simethicone Chewable 80 MG TAB PO PRN (06:11)
[2023-02-04 06:29] LABS: ALT (SGPT) 38 U/L (8-55); AST (SGOT) 16 U/L (5-34); Albumin 3.5 g/dL (3.5-5.0); Alkaline Phosphatase 133 U/L (40-110); Anion Gap 14 mmol/L (10-20); BUN (Urea Nitrogen) 7 mg/dL (7.0-18.7); Bilirubin, Total 0.6 mg/dL (0.2-1.2); Calc. Creatinine Clearance 150 mL/min (70-130); Calcium 9.5 mg/dL (7.8-10.44); Carbon Dioxide 25 mmol/L (22-29); Chloride 103 mmol/L (98-107); Estimated GFR 114; Glucose 151 mg/dL (70-105); Lipase 126 U/L (8-78); Potassium 3.5 mmol/L (3.5-5.1); Protein, Total 6.5 g/dL (6.0-8.3); Sodium 138 mmol/L (136-145)
[2023-02-04] MEDS: Sertraline 100 MG TAB PO SCH (08:53)
[2023-02-04] MEDS: Polyethylene Glycol 3350 17 GM Packet PO SCH (08:53)
[2023-02-04] MEDS: Senokot S 8.6-50 MG TAB PO SCH (08:53)
[2023-02-04 12:21] VITALS: BP 123/85; TEMP 97.7
== END 2023-02-04 15:38 | disposition home or self-care (01) | DRG 393 ==
LOC: T4-B 14:55
PROVIDERS: ADMIT Internal Medicine; ATTEND Hospitalist
PROC: 0DJ08ZZ Inspection of Upper Intestinal Tract, Via Natural or Artificial Opening Endoscopic (ICD-10-PCS; principal; 2023-01-28)
PROC: 0F798DZ Dilation of Common Bile Duct with Intraluminal Device, Via Natural or Artificial Opening Endoscopic (ICD-10-PCS; 2023-01-28)
DX: K91.89 Other postprocedural complications and disorders of digestive system (principal); K85.90 Acute pancreatitis without necrosis or infection, unspecified; J90 Pleural effusion, not elsewhere classified; K56.7 Ileus, unspecified; K83.8 Other specified diseases of biliary tract; E86.0 Dehydration; E11.9 Type 2 diabetes mellitus without complications; E66.9 Obesity, unspecified; F41.9 Anxiety disorder, unspecified; K59.00 Constipation, unspecified; Y83.8 Other surgical procedures as the cause of abnormal reaction of the patient, or of later complication, without mention of misadventure at the time of the procedure; Z90.49 Acquired absence of other specified parts of digestive tract; Z68.33 Body mass index [BMI] 33.0-33.9, adult; Z88.0 Allergy status to penicillin; Z88.8 Allergy status to other drugs, medicaments and biological substances; Z79.899 Other long term (current) drug therapy
CPT/HCPCS: 36415; 36416; 74018; 74330; 76705; 78226; 80048; 80053; 80076; 83690; 84484; 85025; 86140; 87040; 93005; 93010; A9537; C1769; C2617; C9113; J1100; J1170; J1885; J1956; J2270; J2272; J2405; J2550; J2704; J3010; J7050; Q9967

== ENCOUNTER 2023-02-14 09:50 | Inpatient (IN) | payer BC, OTHER, SELFPAY ==
[~2023-02-14 09:50] MED LIST changes: -Iopamidol-370 76% 500 ML 1 ML ONE; +Iopamidol-370 76% 500 ML MDV (1 ML CHARGE) ONE
[2023-02-14] MEDS ORDERED: Scopolamine 1.5 mg/72 hour Patch TOP SCH (10:30)
[2023-02-14 11:05] LABS: #Eosinphils 0.1 thou/uL (0.0-0.7); #Monocytes 0.5 thou/uL (0.11-0.59); #Neutrophils 10.4 thou/uL (1.40-6.50); %Basophils 0.1 % (0.0-1.0); %Eosinophils 0.7 % (0.0-10.0); %Lymphocytes 8.2 % (21.0-51.0); %Monocytes 3.8 % (0.0-10.0); %Neutrophils 87.1 % (42.0-75.0); Hemoglobin 12.1 g/dL (12.0-16.0); Mean Corpuscular HGB CONC 35.6 g/dL (32.0-36.0); Mean Corpuscular Hemoglobin 30.9 pg (27.0-31.0); Mean Corpuscular Volume 86.8 fl (78.0-98.0); Mean Platelet Volume 7.6 fL (7.4-10.4); Platelet Count 313 10x3/uL (130-400); Red Blood Cell (RBC) Count 3.92 mill/uL (4.20-5.40)
[2023-02-14 11:09] LABS: BHCG - Serum Negative (NEGATIVE); Pregs Control Background? CLEAR/WHITE (CLR/WHITE); Pregs Control Bar Appear? YES (CONTROL BAR)
[2023-02-14 11:16] LABS: ALT (SGPT) 14 U/L (8-55); AST (SGOT) 13 U/L (5-34); Alkaline Phosphatase 109 U/L (40-110); Anion Gap 19 mmol/L (10-20); BUN (Urea Nitrogen) 10 mg/dL (7.0-18.7); Bilirubin, Total 1.5 mg/dL (0.2-1.2); Calc. Creatinine Clearance 0 mL/min (70-130); Calcium 9.9 mg/dL (7.8-10.44); Carbon Dioxide 17 mmol/L (22-29); Chloride 104 mmol/L (98-107); Estimated GFR 104; Globulin 3.3 g/dL (2.4-3.5); Glucose 245 mg/dL (70-105); Lipase 61 U/L (8-78); Potassium 4.1 mmol/L (3.5-5.1); Protein, Total 7.3 g/dL (6.0-8.3); Sodium 136 mmol/L (136-145)
[2023-02-14] MEDS ORDERED: Ketorolac Tromethamine 30 MG/ML VIAL ONE (13:54)
[2023-02-14 14:37] LABS: Bilirubin Negative (Negative); Blood, Urine Negative (Negative); Clarity Clear (Clear); Glucose, Urine (Dipstick) 300 mg/dL (Negative); Ketone, Urine 100 mg/dL (Negative); Leukocyte Negative Leu/uL (Negative); Nitrite Negative (Negative); Protein, Urine (Dipstick) Negative (Neg-Trace); Specific Gravity, Urine 1.036 (1.002-1.036); Urobilinogen Normal mg/dL (Less than 2)
[2023-02-14 14:40] LABS: Lactic Acid 1.6 mmol/L (0.5-2.2)
[2023-02-14] MEDS ORDERED: Glycerin Adult Supp. (24 ct jar) PR PRN (16:53)
[2023-02-14] MEDS ORDERED: Cyclobenzaprine 10 MG TAB PO PRN (16:53)
[2023-02-14] MEDS ORDERED: Acetaminophen 325 MG TAB PO PRN (16:54)
[2023-02-14] MEDS ORDERED: HumaLOG 300 UNITS/3 ML VIAL SC PRN ×2 (17:43)
[2023-02-14] MEDS ORDERED: Dextrose 5% in Water 1,000 ML IV PRN (17:43)
[2023-02-14] MEDS ORDERED: Dextrose 50% Abboject 50 ML SYRINGE SLOW IVP PRN (17:43)
[2023-02-14] MEDS: Morphine 2 MG/ML VIAL SLOW IVP PRN ×2 (18:23→23:33)
[2023-02-14] MEDS: Lactated Ringer's 1,000 ML IV SCH (18:23)
[2023-02-14] MEDS: Ondansetron PF 4 MG/2 ML Vial IVP PRN ×2 (18:24→23:33)
[2023-02-14 18:42] VITALS: BMI 32.1
[2023-02-14] MEDS: Pantoprazole 40 MG VIAL IVP SCH (20:15)
[2023-02-15] MEDS: Lactated Ringer's 1,000 ML IV SCH ×3 (03:39→16:31)
[2023-02-15] MEDS: Morphine 2 MG/ML VIAL SLOW IVP PRN ×2 (06:42→16:27)
[2023-02-15] MEDS: Ondansetron PF 4 MG/2 ML Vial IVP PRN (06:42)
[2023-02-15 06:55] LABS: #Eosinphils 0.1 thou/uL (0.0-0.7); #Lymphocytes 1.8 thou/uL (1.20-3.40); #Monocytes 0.7 thou/uL (0.11-0.59); #Neutrophils 6.5 thou/uL (1.40-6.50); %Basophils 0.2 % (0.0-1.0); %Eosinophils 1.6 % (0.0-10.0); %Lymphocytes 19.3 % (21.0-51.0); %Monocytes 7.4 % (0.0-10.0); %Neutrophils 71.5 % (42.0-75.0); Hemoglobin 10.8 g/dL (12.0-16.0); Mean Corpuscular HGB CONC 36.3 g/dL (32.0-36.0); Mean Corpuscular Hemoglobin 31.6 pg (27.0-31.0); Mean Platelet Volume 7.4 fL (7.4-10.4); Platelet Count 276 10x3/uL (130-400); Red Blood Cell (RBC) Count 3.42 mill/uL (4.20-5.40); White Blood Cell (WBC) Count 9.1 10x3/uL (4.8-10.8)
[2023-02-15 07:13] LABS: ALT (SGPT) 12 U/L (8-55); AST (SGOT) 9 U/L (5-34); Albumin 3.5 g/dL (3.5-5.0); Alkaline Phosphatase 88 U/L (40-110); Anion Gap 13 mmol/L (10-20); BUN (Urea Nitrogen) 5 mg/dL (7.0-18.7); Bilirubin, Total 1.2 mg/dL (0.2-1.2); Calc. Creatinine Clearance 58 mL/min (70-130); Calcium 9.6 mg/dL (7.8-10.44); Carbon Dioxide 23 mmol/L (22-29); Chloride 107 mmol/L (98-107); Estimated GFR 115; Globulin 2.8 g/dL (2.4-3.5); Glucose 121 mg/dL (70-105); Lipase 54 U/L (8-78); Magnesium 1.7 mg/dL (1.6-2.6); Potassium 3.5 mmol/L (3.5-5.1); Protein, Total 6.3 g/dL (6.0-8.3); Sodium 139 mmol/L (136-145)
[2023-02-15] MEDS: Pantoprazole 40 MG VIAL IVP SCH ×2 (08:15→19:56)
[2023-02-15] MEDS: Polyethylene Glycol 3350 17 GM Packet PO SCH (08:15)
[2023-02-15] MEDS: Sertraline 100 MG TAB PO SCH (08:16)
[2023-02-15] MEDS: HYDROcodone/Acetaminophen 10/325 mg Tablet PO PRN (08:29)
[2023-02-15] MEDS: Promethazine HCl 25 MG in Sodium Chloride 0.9% 50 ML IVPB PRN ×2 (09:26→19:56)
[2023-02-15] MEDS: Ketorolac Tromethamine 30 MG/ML VIAL IVP PRN ×2 (12:09→18:41)
[2023-02-16] MEDS: Lactated Ringer's 1,000 ML IV SCH ×3 (00:31→17:28)
[2023-02-16] MEDS: Ketorolac Tromethamine 30 MG/ML VIAL IVP PRN ×2 (01:05→18:50)
[2023-02-16 07:00] LABS: #Eosinphils 0.1 thou/uL (0.0-0.7); #Lymphocytes 1.4 thou/uL (1.20-3.40); #Monocytes 0.4 thou/uL (0.11-0.59); %Basophils 0.1 % (0.0-1.0); %Eosinophils 1.9 % (0.0-10.0); %Lymphocytes 23.8 % (21.0-51.0); %Monocytes 7.3 % (0.0-10.0); Hemoglobin 9.7 g/dL (12.0-16.0); Mean Corpuscular HGB CONC 34.6 g/dL (32.0-36.0); Mean Corpuscular Hemoglobin 30.5 pg (27.0-31.0); Mean Corpuscular Volume 88.1 fl (78.0-98.0); Mean Platelet Volume 7.6 fL (7.4-10.4); Platelet Count 223 10x3/uL (130-400); RBC Distribution Width 11.9 % (11.5-14.5); Red Blood Cell (RBC) Count 3.17 mill/uL (4.20-5.40); White Blood Cell (WBC) Count 5.9 10x3/uL (4.8-10.8)
[2023-02-16 07:22] LABS: ALT (SGPT) 14 U/L (8-55); AST (SGOT) 12 U/L (5-34); Albumin 3.2 g/dL (3.5-5.0); Alkaline Phosphatase 82 U/L (40-110); Anion Gap 12 mmol/L (10-20); BUN (Urea Nitrogen) 6 mg/dL (7.0-18.7); Bilirubin, Total 1.1 mg/dL (0.2-1.2); Calc. Creatinine Clearance 58 mL/min (70-130); Calcium 9.1 mg/dL (7.8-10.44); Carbon Dioxide 23 mmol/L (22-29); Chloride 108 mmol/L (98-107); Estimated GFR 115; Globulin 2.5 g/dL (2.4-3.5); Glucose 120 mg/dL (70-105); Potassium 3.7 mmol/L (3.5-5.1); Protein, Total 5.7 g/dL (6.0-8.3); Sodium 139 mmol/L (136-145)
[2023-02-16] MEDS: Sertraline 100 MG TAB PO SCH (08:31)
[2023-02-16] MEDS: Pantoprazole 40 MG VIAL IVP SCH ×2 (08:31→20:20)
[2023-02-16] MEDS: Polyethylene Glycol 3350 17 GM Packet PO SCH ×2 (08:32→15:25)
[2023-02-16] MEDS ORDERED: Indomethacin 50 MG SUPP ONE (09:45)
[2023-02-16] MEDS ORDERED: Iopamidol 30 ML ONE (09:46)
[2023-02-16] MEDS ORDERED: SUGAMMADEX SODIUM 200 MG/2 ML VIAL ONE (09:50)
[2023-02-16] MEDS ORDERED: fentaNYL 50 mcg/mL 1 mL Vial ONE ×2 (09:50→11:07)
[2023-02-16] MEDS ORDERED: Famotidine/PF 20 mg/2ml Vial ONE (09:50)
[2023-02-16] MEDS ORDERED: Lidocaine 1% PF 5 ML VIAL ONE (10:00)
[2023-02-16] MEDS ORDERED: PROPOFOL 200 MG/20 ML VIAL ONE (10:00)
[2023-02-16] MEDS ORDERED: Ondansetron PF 4 MG/2 ML Vial ONE ×2 (10:00→10:54)
[2023-02-16] MEDS ORDERED: PHENYLEPHRINE-NS 100 MCG/ML 10 ML SYRINGE ONE (10:00)
[2023-02-16] MEDS ORDERED: Dexamethasone 20 MG/5 ML VIAL ONE (10:00)
[2023-02-16] MEDS ORDERED: Rocuronium Bromide 10 MG/ML (10ML VIAL) ONE (10:00)
[2023-02-16] MEDS ORDERED: Promethazine HCl 25 MG/ML VIAL ONE (11:11)
[2023-02-16] MEDS: Morphine 2 MG/ML VIAL SLOW IVP PRN (15:15)
[2023-02-16] MEDS: HYDROcodone/Acetaminophen 10/325 mg Tablet PO PRN (20:40)
[2023-02-17] MEDS: HYDROcodone/Acetaminophen 10/325 mg Tablet PO PRN ×2 (02:41→16:47)
[2023-02-17] MEDS: Lactated Ringer's 1,000 ML IV SCH ×3 (02:41→16:49)
[2023-02-17] MEDS: Promethazine HCl 25 MG in Sodium Chloride 0.9% 50 ML IVPB PRN (04:43)
[2023-02-17] MEDS: Polyethylene Glycol 3350 17 GM Packet PO SCH (05:01)
[2023-02-17] MEDS: Morphine 2 MG/ML VIAL SLOW IVP PRN (05:01)
[2023-02-17 06:48] LABS: #Eosinphils 0.1 thou/uL (0.0-0.7); #Monocytes 0.6 thou/uL (0.11-0.59); #Neutrophils 5.2 thou/uL (1.40-6.50); %Basophils 0.2 % (0.0-1.0); %Monocytes 7.3 % (0.0-10.0); %Neutrophils 66.5 % (42.0-75.0); Hemoglobin 8.8 g/dL (12.0-16.0); Mean Corpuscular HGB CONC 35.2 g/dL (32.0-36.0); Mean Corpuscular Hemoglobin 30.7 pg (27.0-31.0); Mean Corpuscular Volume 87.1 fl (78.0-98.0); Mean Platelet Volume 7.3 fL (7.4-10.4); Platelet Count 220 10x3/uL (130-400); RBC Distribution Width 11.6 % (11.5-14.5); Red Blood Cell (RBC) Count 2.87 mill/uL (4.20-5.40); White Blood Cell (WBC) Count 7.8 10x3/uL (4.8-10.8)
[2023-02-17 07:06] LABS: Anion Gap 10 mmol/L (10-20); BUN (Urea Nitrogen) 5 mg/dL (7.0-18.7); Calc. Creatinine Clearance 61 mL/min (70-130); Calcium 9.2 mg/dL (7.8-10.44); Carbon Dioxide 26 mmol/L (22-29); Chloride 106 mmol/L (98-107); Estimated GFR 116; Glucose 127 mg/dL (70-105); Potassium 3.4 mmol/L (3.5-5.1); Sodium 139 mmol/L (136-145)
[2023-02-17] MEDS: Sertraline 100 MG TAB PO SCH (08:56)
[2023-02-17] MEDS: Pantoprazole 40 MG VIAL IVP SCH ×2 (08:58→22:01)
[2023-02-17] MEDS: Ketorolac Tromethamine 30 MG/ML VIAL IVP PRN (09:01)
[2023-02-17] MEDS: Ondansetron PF 4 MG/2 ML Vial IVP PRN (13:58)
[2023-02-17] MEDS: Hyoscyamine SL 0.125 MG TAB SL SCH (18:39)
[2023-02-18] MEDS: Hyoscyamine SL 0.125 MG TAB SL SCH ×3 (01:10→12:23)
[2023-02-18] MEDS: Lactated Ringer's 1,000 ML IV SCH ×2 (01:52→09:46)
[2023-02-18 07:15] VITALS: BP 122/79; TEMP 97.9
[2023-02-18 07:15] LABS: Anion Gap 13 mmol/L (10-20); BUN (Urea Nitrogen) 6 mg/dL (7.0-18.7); Calc. Creatinine Clearance 59 mL/min (70-130); Calcium 8.9 mg/dL (7.8-10.44); Carbon Dioxide 25 mmol/L (22-29); Chloride 103 mmol/L (98-107); Estimated GFR 116; Glucose 139 mg/dL (70-105); Lipase 54 U/L (8-78); Potassium 3.5 mmol/L (3.5-5.1); Sodium 137 mmol/L (136-145)
[2023-02-18] MEDS: Ondansetron PF 4 MG/2 ML Vial IVP PRN (09:19)
[2023-02-18] MEDS: Polyethylene Glycol 3350 17 GM Packet PO SCH (09:20)
[2023-02-18] MEDS: Sertraline 100 MG TAB PO SCH (09:20)
[2023-02-18] MEDS: Pantoprazole 40 MG VIAL IVP SCH (09:46)
[2023-02-18] MEDS ORDERED: Ondansetron PF 4 MG/2 ML Vial IVP SCH (10:00)
== END 2023-02-18 12:30 | disposition home or self-care (01) | DRG 392 ==
LOC: ERS 09:50 → T4-B 16:13 → OBSVTOIN 02-15 17:01
PROVIDERS: ADMIT Hospitalist; ATTEND Hospitalist
PROC: 0FJB8ZZ Inspection of Hepatobiliary Duct, Via Natural or Artificial Opening Endoscopic (ICD-10-PCS; principal; 2023-02-16)
DX: R10.13 Epigastric pain (principal); E11.9 Type 2 diabetes mellitus without complications; G89.29 Other chronic pain; M54.2 Cervicalgia; M54.50 Low back pain, unspecified; F41.9 Anxiety disorder, unspecified; E66.9 Obesity, unspecified; R11.2 Nausea with vomiting, unspecified; Y83.8 Other surgical procedures as the cause of abnormal reaction of the patient, or of later complication, without mention of misadventure at the time of the procedure; Z68.32 Body mass index [BMI] 32.0-32.9, adult; Z98.51 Tubal ligation status; Z87.891 Personal history of nicotine dependence; Z90.49 Acquired absence of other specified parts of digestive tract; Z88.0 Allergy status to penicillin; Z88.8 Allergy status to other drugs, medicaments and biological substances; Z79.899 Other long term (current) drug therapy
CPT/HCPCS: 36415; 36416; 74177; 74330; 80048; 80053; 81003; 83605; 83690; 83735; 84703; 85025; 93005; 93010; 96361; 96374; 96375; 96376; C9113; G0378; J1100; J1885; J1956; J2272; J2405; J2550; J2704; J3010; J7120; Q9967; S0028

== ENCOUNTER 2023-05-10 09:28 | Emergency (ER) | payer OTHER ==
[2023-05-10 10:06] LABS: #Basophils 0.1 thou/uL (0.0-0.2); #Eosinphils 0.4 thou/uL (0.0-0.7); #Monocytes 0.5 thou/uL (0.11-0.59); #Neutrophils 6.8 thou/uL (1.40-6.50); %Basophils 0.5 % (0.0-1.0); %Eosinophils 3.5 % (0.0-10.0); %Monocytes 4.9 % (0.0-10.0); %Neutrophils 66.5 % (42.0-75.0); Hemoglobin 13.5 g/dL (12.0-16.0); Mean Corpuscular HGB CONC 32.8 g/dL (32.0-36.0); Mean Corpuscular Hemoglobin 28.3 pg (27.0-31.0); Mean Corpuscular Volume 86.2 fl (78.0-98.0); Mean Platelet Volume 9.3 fL (7.4-10.4); Platelet Count 322 10x3/uL (130-400); RBC Distribution Width 13.4 % (11.5-14.5); Red Blood Cell (RBC) Count 4.77 mill/uL (4.20-5.40); White Blood Cell (WBC) Count 10.2 10x3/uL (4.8-10.8)
[2023-05-10 10:35] LABS: ALT (SGPT) 16 U/L (8-55); AST (SGOT) 14 U/L (5-34); Albumin 4.6 g/dL (3.5-5.0); Alkaline Phosphatase 110 U/L (40-110); Anion Gap 13 mmol/L (10-20); BUN (Urea Nitrogen) 11 mg/dL (7.0-18.7); Bilirubin, Total 0.9 mg/dL (0.2-1.2); Calc. Creatinine Clearance 0 mL/min (70-130); Calcium 10.3 mg/dL (7.8-10.44); Carbon Dioxide 24 mmol/L (22-29); Chloride 105 mmol/L (98-107); Estimated GFR 100; Globulin 3.1 g/dL (2.4-3.5); Glucose 121 mg/dL (70-105); Lipase 40 U/L (8-78); Potassium 3.9 mmol/L (3.5-5.1); Protein, Total 7.7 g/dL (6.0-8.3); Sodium 138 mmol/L (136-145)
[2023-05-10] MEDS ORDERED: Ondansetron PF 4 MG/2 ML Vial ONE (11:23)
[2023-05-10] MEDS ORDERED: Ketorolac Tromethamine 30 MG/ML VIAL ONE (11:23)
[2023-05-10 13:30] LABS: BHCG - Serum Negative (NEGATIVE); Pregs Control Background? CLEAR/WHITE (CLR/WHITE); Pregs Control Bar Appear? YES (CONTROL BAR)
== END 2023-05-10 14:24 | disposition home or self-care (01) ==
LOC: ERS 09:28
DX: R10.9 Unspecified abdominal pain (principal); R11.2 Nausea with vomiting, unspecified; R19.7 Diarrhea, unspecified; E11.9 Type 2 diabetes mellitus without complications
CPT/HCPCS: 36415; 74177; 80053; 83690; 84703; 85025; 96365; 96375; J1885; J2405; Q9967

== ENCOUNTER 2024-03-14 14:04 | Emergency (ER) | payer OTHER ==
[2024-03-14 15:28] LABS: #Basophils 0.03 10x3/uL (0.0-0.2); %Basophils 0.4 % (0.0-1.0); %Eosinophils 1.1 % (0.0-10.0); %Lymphocytes 18.4 % (21.0-51.0); %Monocytes 6.6 % (0.0-10.0); %Neutrophils 72.9 % (42.0-75.0); Hematocrit 31.9 % (36.0-47.0); Hemoglobin 10.4 g/dL (12.0-16.0); Mean Corpuscular HGB CONC 32.6 g/dL (32.0-36.0); Mean Corpuscular Hemoglobin 26.4 pg (27.0-31.0); Mean Platelet Volume 9.9 fL (7.4-10.4); Platelet Count 228 10x3/uL (130-400); RBC Distribution Width 14.9 % (11.5-14.5); Red Blood Cell (RBC) Count 3.94 mill/uL (4.20-5.40)
[2024-03-14] MEDS ORDERED: Ketorolac Tromethamine 30 MG (1 mL) VIAL ONE (15:43)
[2024-03-14] MEDS ORDERED: Ondansetron PF 4 MG/2 ML Vial ONE (15:43)
[2024-03-14 16:24] LABS: ALT (SGPT) 33 U/L (8-55); AST (SGOT) 28 U/L (5-34); Albumin 3.7 g/dL (3.5-5.0); Alkaline Phosphatase 72 U/L (40-110); Anion Gap 12 mmol/L (10-20); BUN (Urea Nitrogen) 9 mg/dL (7.0-18.7); Bilirubin, Total 1.5 mg/dL (0.2-1.2); Calc. Creatinine Clearance 0 mL/min (70-130); Calcium 9.4 mg/dL (7.8-10.44); Carbon Dioxide 19 mmol/L (22-29); Chloride 106 mmol/L (98-107); Estimated GFR 114; Globulin 3.2 g/dL (2.4-3.5); Glucose 102 mg/dL (70-105); Lipase 39 U/L (8-78); Magnesium 1.6 mg/dL (1.6-2.6); Potassium 3.9 mmol/L (3.5-5.1); Protein, Total 6.9 g/dL (6.0-8.3); Sodium 133 mmol/L (136-145)
== END 2024-03-14 15:49 | disposition home or self-care (01) ==
LOC: ERS 14:04
DX: R19.7 Diarrhea, unspecified (principal); E11.9 Type 2 diabetes mellitus without complications; F17.210 Nicotine dependence, cigarettes, uncomplicated
CPT/HCPCS: 36415; 74177; 83690; 83735; 96374; 96375; J1885; J2405

== ENCOUNTER 2024-04-11 17:20 | Emergency (ER) | payer OTHER ==
[2024-04-11 18:44] LABS: #Basophils 0.03 10x3/uL (0.0-0.2); %Basophils 0.4 % (0.0-1.0); %Eosinophils 2.9 % (0.0-10.0); %Lymphocytes 29.1 % (21.0-51.0); %Monocytes 6.7 % (0.0-10.0); %Neutrophils 59.8 % (42.0-75.0); Hematocrit 30.4 % (36.0-47.0); Hemoglobin 9.8 g/dL (12.0-16.0); Mean Corpuscular HGB CONC 32.2 g/dL (32.0-36.0); Mean Corpuscular Hemoglobin 26.1 pg (27.0-31.0); Mean Corpuscular Volume 81.1 fL (78.0-98.0); Mean Platelet Volume 10.5 fL (7.4-10.4); Platelet Count 202 10x3/uL (130-400); RBC Distribution Width 14.6 % (11.5-14.5); Red Blood Cell (RBC) Count 3.75 mill/uL (4.20-5.40)
[2024-04-11 19:10] LABS: Troponin I Less than 0.010 ng/mL (< 0.028)
[2024-04-11 19:11] LABS: ALT (SGPT) 23 U/L (8-55); AST (SGOT) 17 U/L (5-34); Albumin 3.7 g/dL (3.5-5.0); Alkaline Phosphatase 84 U/L (40-110); Anion Gap 14 mmol/L (10-20); BUN (Urea Nitrogen) 8 mg/dL (7.0-18.7); Bilirubin, Total 0.7 mg/dL (0.2-1.2); Calc. Creatinine Clearance 0 mL/min (70-130); Calcium 9.5 mg/dL (7.8-10.44); Carbon Dioxide 20 mmol/L (22-29); Chloride 106 mmol/L (98-107); Estimated GFR 102; Globulin 3.5 g/dL (2.4-3.5); Glucose 134 mg/dL (70-105); Potassium 4.1 mmol/L (3.5-5.1); Protein, Total 7.2 g/dL (6.0-8.3); Sodium 136 mmol/L (136-145)
[2024-04-11 20:11] LABS: BHCG - Serum Negative (NEGATIVE); Pregs Control Background? CLEAR/WHITE (CLR/WHITE); Pregs Control Bar Appear? YES (CONTROL BAR)
[2024-04-11] MEDS ORDERED: Ketorolac Tromethamine 30 MG (1 mL) VIAL ONE (20:45)
[2024-04-11 20:49] LABS: MONO NEGATIVE CONTROL ZONE White (Negative) (White); MONO POSITIVE CONTROL Pink Line (Positive) (PINK/RED); Mononucleosis NEGATIVE (NEGATIVE)
== END 2024-04-11 23:09 | disposition home or self-care (01) ==
LOC: ERS 17:20
DX: R07.9 Chest pain, unspecified (principal); E11.9 Type 2 diabetes mellitus without complications; F17.210 Nicotine dependence, cigarettes, uncomplicated
CPT/HCPCS: 36415; 71046; 71275; 80053; 83690; 84484; 84703; 85025; 86308; 93005; 96374; J1885; Q9967

== ENCOUNTER 2024-11-18 10:34 | Emergency (ER) | payer OTHER ==
[2024-11-18 13:04] LABS: Bacteria/HPF None Seen HPF (None Seen); Bilirubin Negative (Negative); Blood, Urine Trace (Negative); CAUTI Indications for Culture Dysuria,urgency,freq; Clarity Clear (Clear); Glucose, Urine (Dipstick) 500 mg/dL (Negative); Ketone, Urine Negative (Negative); Leukocyte Negative Leu/uL (Negative); Nitrite Negative (Negative); Protein, Urine (Dipstick) Negative (Neg-Trace); RBC/HPF 0-3 HPF (0-3); Specific Gravity, Urine 1.018 (1.002-1.036); Squamous Epithelial 0-3 HPF (0-3); Urobilinogen Normal mg/dL (Less than 2); WBC/HPF 0-3 HPF (0-3)
[2024-11-18 13:06] LABS: Urine Culture Reflex No No
[2024-11-18 13:11] LABS: Amphetamine Not Detected (NotDetected); Barbiturates Screen Not Detected (NotDetected); Benzodiazepine Screen Not Detected (NotDetected); Cocaine Metabolite Screen Not Detected (NotDetected); Methadone Not Detected (NotDetected); Methamphetamine Not Detected (NotDetected); Opiate Screen Not Detected (NotDetected); Oxycodone Screen Not Detected (NotDetected); Phencyclidine (PCP) Not Detected (NotDetected); THC/Cannabinoid Screen Not Detected (NotDetected); Tricyclic Screen Not Detected (NotDetected)
[2024-11-18 13:16] LABS: Lipase 42 U/L (8-78)
[2024-11-18 13:18] LABS: ALT (SGPT) 15 U/L (Less than 34); AST (SGOT) 18 U/L (11-34); Acetaminophen Less than 10 mcg/mL (Less than 10); Albumin 3.7 g/dL (3.1-4.5); Alcohol Less than 10.0 mg/dL (Less than 10); Alkaline Phosphatase 109 U/L (40-110); Anion Gap 12 mmol/L (10-20); BUN (Urea Nitrogen) 11 mg/dL (7.0-18.7); Bilirubin, Total 0.8 mg/dL (0.3-1.2); Calc. Creatinine Clearance 0 mL/min (70-130); Calcium 9.3 mg/dL (7.8-10.44); Carbon Dioxide 21 mmol/L (22-29); Chloride 107 mmol/L (98-107); Estimated GFR 118; Globulin 3.6 g/dL (2.4-3.5); Glucose 124 mg/dL (70-105); Protein, Total 7.3 g/dL (6.0-8.3); Salicylate Less than 8.0 mg/dL (Less than 8.0); Sodium 136 mmol/L (136-145)
[2024-11-18 13:25] LABS: Troponin I Less than 0.010 ng/mL (< 0.028)
[2024-11-18 13:46] LABS: Anisocytosis SLIGHT = 6-15 cells HPF (0-5); Band 2 % (5-11); Eosinophils 3 % (0-10); Hematocrit 30.6 % (36.0-47.0); Hemoglobin 9.3 g/dL (12.0-16.0); Large Platelets 3.1 % (0-5); Lymphocytes 16 % (21-51); Mean Corpuscular HGB CONC 30.4 g/dL (32.0-36.0); Mean Corpuscular Volume 72.5 fL (78.0-98.0); Mean Platelet Volume 10.8 fL (7.4-10.4); Monocytes 3 % (0-10); Neutrophil 76 % (42-75); Ovalocytes SLIGHT = 2-5 cells HPF (0-1); Platelet Adequacy Comment Platelets Normal; Platelet Count 286 10x3/uL (130-400); Polychromasia SLIGHT = 2-3 cells HPF (0-2); Red Blood Cell (RBC) Count 4.22 mill/uL (4.20-5.40); Smudge Cells 14.3 %; Tear Drops SLIGHT = 2-5 cells HPF (0-1)
[2024-11-18] MEDS ORDERED: Ondansetron ODT 4 MG TAB ONE (13:47)
== END 2024-11-18 14:33 | disposition home or self-care (01) ==
LOC: ERS 10:34
DX: R42 Dizziness and giddiness (principal); H55.89 Other irregular eye movements; E11.9 Type 2 diabetes mellitus without complications; E78.5 Hyperlipidemia, unspecified; K21.9 Gastro-esophageal reflux disease without esophagitis; Z79.899 Other long term (current) drug therapy; Z79.85 Long-term (current) use of injectable non-insulin antidiabetic drugs; Z87.891 Personal history of nicotine dependence
CPT/HCPCS: 36415; 71045; 80053; 80306; 80307; 81001; 83690; 84443; 84484; 85025; 93005; Q0162

== ENCOUNTER 2025-07-14 16:41 | Emergency (ER) | payer OTHER ==
[2025-07-14 16:58] LABS: #Basophils 0.03 10x3/uL (0.0-0.2); #Eosinophils 0.14 10x3/uL (0.0-0.7); #Monocytes 0.32 10x3/uL (0.11-0.59); #Neutrophils 3.54 10x3/uL (1.40-6.50); %Basophils 0.5 % (0.0-1.0); %Eosinophils 2.3 % (0.0-10.0); %Lymphocytes 33.1 % (21.0-51.0); %Monocytes 5.3 % (0.0-10.0); %Neutrophils 58.3 % (42.0-75.0); Hematocrit 34.9 % (36.0-47.0); Hemoglobin 11.5 g/dL (12.0-16.0); Mean Corpuscular Hemoglobin 30.9 pg (27.0-31.0); Mean Corpuscular Volume 93.8 fL (78.0-98.0); Platelet Count 265 10x3/uL (130-400); Red Blood Cell (RBC) Count 3.72 mill/uL (4.20-5.40); White Blood Cell (WBC) Count 6.07 10x3/uL (4.8-10.8)
[2025-07-14 17:12] LABS: BHCG - Serum Negative (NEGATIVE); Pregs Control Background? CLEAR/WHITE (CLR/WHITE); Pregs Control Bar Appear? YES (CONTROL BAR)
[2025-07-14 17:17] LABS: ALT (SGPT) 16 U/L (Less than 34); AST (SGOT) 18 U/L (11-34); Albumin 4.2 g/dL (3.1-4.5); Alkaline Phosphatase 99 U/L (40-110); Anion Gap 14 mmol/L (10-20); BUN (Urea Nitrogen) 13 mg/dL (7.0-18.7); Bilirubin, Total 0.5 mg/dL (0.3-1.2); Calc. Creatinine Clearance 0 mL/min (70-130); Calcium 9.9 mg/dL (7.8-10.44); Carbon Dioxide 20 mmol/L (22-29); Chloride 110 mmol/L (98-107); Globulin 2.9 g/dL (2.4-3.5); Glucose 116 mg/dL (70-105); Potassium 3.5 mmol/L (3.5-5.1); Sodium 140 mmol/L (136-145)
[2025-07-14 17:21] LABS: INR-International Normal Ratio 1.0; Prothrombin Time 13.3 sec (12.0-14.7)
[2025-07-14 17:22] LABS: PTT 31.6 sec (22.9-36.1)
[2025-07-14] MEDS ORDERED: Ketamine In 0.9 % NaCl 50 MG/5 ML SYRINGE ONE (17:34)
[2025-07-14] MEDS ORDERED: Ondansetron PF 4 MG/2 ML Vial ONE (18:14)
== END 2025-07-14 19:05 | disposition home or self-care (01) ==
LOC: ERS 16:41
DX: G43.909 Migraine, unspecified, not intractable, without status migrainosus (principal); E11.9 Type 2 diabetes mellitus without complications; Z87.891 Personal history of nicotine dependence; E78.00 Pure hypercholesterolemia, unspecified; Z79.899 Other long term (current) drug therapy; Z79.85 Long-term (current) use of injectable non-insulin antidiabetic drugs
CPT/HCPCS: 36415; 70496; 70498; 80053; 84703; 85025; 85610; 85730; 96374; 96375; J3490; Q9967